=== PATIENT | male | born 1985 | race Two or more races ===

== ENCOUNTER 2022-06-11 13:31 | Emergency (ER) | payer OTHER ==
[~2022-06-11] VITALS: Ht 182.9 cm; Wt 111.6 kg
[2022-06-11] MEDS ORDERED: DESCOVY 200-251 EACH (13:49)
[2022-06-11] MEDS ORDERED: KETO10TA2 PO (16:03)
[2022-06-11] MEDS ORDERED: NORFLEX100MG PO (16:03)
== END 2022-06-11 16:15 | disposition home or self-care (01) ==
LOC: ER 13:31
DX: M54.9 Dorsalgia, unspecified (principal); Z88.2 Allergy status to sulfonamides

== ENCOUNTER 2022-12-06 14:51 | Emergency (ER) | payer OTHER ==
[~2022-12-06] VITALS: Ht 185.4 cm; Wt 108.9 kg
[~2022-12-06 14:51] MED LIST: DESCOVY 200-251 EACH; KETO10TA2 PO; NORFLEX100MG PO
[2022-12-06] MEDS ORDERED: DESCOVY 200-251 EACH (15:35)
== END 2022-12-06 18:29 | disposition home or self-care (01) ==
LOC: ER 14:51
DX: J06.9 Acute upper respiratory infection, unspecified (principal); Z88.2 Allergy status to sulfonamides; Z20.822 Contact with and (suspected) exposure to COVID-19

== ENCOUNTER 2023-05-01 15:35 | Emergency (ER) | payer OTHER ==
[~2023-05-01] VITALS: Ht 182.9 cm; Wt 113.4 kg
== END 2023-05-01 20:09 | disposition home or self-care (01) ==
LOC: ER 15:35
DX: R07.89 Other chest pain (principal); Z88.2 Allergy status to sulfonamides; Z88.8 Allergy status to other drugs, medicaments and biological substances
CPT/HCPCS: 36415; 71046; 93005; 96372; 99284; J2360

== ENCOUNTER → 2025-05-10 | Emergency (ER) | payer BC ==
[~2025-05-10] VITALS: Ht 185.4 cm; Wt 117.5 kg
[~2025-05-10] MED LIST changes: +DICLOFENAC SODI75 MG PO; +KETOROLAC TROMETHAMINE 60 MG VIAL IM ONE; +KETOROLAC TROMETHAMINE 60 MG VIAL IM STA; +ORPHENADRINE CITRATE 30 MG/ML AMPUL IM STA; +ORPHENADRINE CITRATE 30 MG/ML AMPUL ONE; +TOPROL XL25 M1
[2025-05-10 03:09] VITALS: BP 140/90; O2SAT 100
== END | disposition home or self-care (01) ==
LOC: ER 02:53
DX: M62.838 Other muscle spasm (principal); I10 Essential (primary) hypertension; Z88.2 Allergy status to sulfonamides

== ENCOUNTER 2025-05-19 15:46 | Emergency (ER) | payer BC ==
[~2025-05-19] VITALS: Ht 188 cm; Wt 95.3 kg
[~2025-05-19 15:46] MED LIST changes: -KETOROLAC TROMETHAMINE 60 MG VIAL IM ONE; -KETOROLAC TROMETHAMINE 60 MG VIAL IM STA; -ORPHENADRINE CITRATE 30 MG/ML AMPUL IM STA; -ORPHENADRINE CITRATE 30 MG/ML AMPUL ONE
[2025-05-19] MEDS ORDERED: NIFEDIPINE 10 MG CAPSULE PO ONE ×3 (16:30→18:15)
[2025-05-19 16:41] LABS: BASO % 0.1 % (0.1-1.2); EOS # 0.11 (0.04-0.54); EOS % 1.4 % (0.7-7.0); LYMPH # 2.82 (1.18-3.74); LYMPH % 36.9 % (19.3-53.1); MEAN PLATELET VOLUME 8.70 fl (9.4-12.4); MONO # 0.72 (0.24-0.82); MONO % 9.4 % (4.7-12.5); NEUT # 3.93 (1.56-6.13); NEUT % 51.4 % (34.0-71.1); RED CELL DISTRIBUTION WIDTH 14.4 % (11.6-14.4)
[2025-05-19 17:05] LABS: ALT/SGPT 24.0 U/L (12-78); AST/SGOT 15.0 U/L (15-37); BILIRUBIN TOTAL 0.63 mg/dL (0.3-1.2); BUN CREA RATIO 10.0 (7.0-25.0); CREATININE SERUM 1.25 mg/dL (0.70-1.30); GFR 64.99; GLOBULINA 3.5 G/DL (2.4-3.5); GLUCOSE FASTING 88.0 mg/dL (65-100); OSMOLALITY SERUM 282.0 MOSM/KG (275-295)
[2025-05-19] MEDS ORDERED: TRAMADOL HCL 50 MG TABLET PO ONE (18:15)
[2025-05-19] MEDS ORDERED: LABETALOL HCL 100 MG/20 ML ML ONE (18:51)
[2025-05-19] MEDS ORDERED: hydrALAZINE HCL 20 MG VIAL ONE (18:58)
[2025-05-19] MEDS ORDERED: LABETALOL HCL 200 MG/40 ML VIAL IV ONE (19:00)
[2025-05-19] MEDS ORDERED: hydrALAZINE HCL 20 MG VIAL IV ONE (19:00)
[2025-05-19] MEDS ORDERED: NEURONTIN300 MG PO (19:55)
[2025-05-19] MEDS ORDERED: AMLODIPINE BESYLATE 10 MG TABLET PO ONE (20:00)
== END 2025-05-19 21:35 | disposition home or self-care (01) ==
LOC: ER 15:46
PROVIDERS: General Practice
DX: I10 Essential (primary) hypertension (principal); M54.12 Radiculopathy, cervical region; Z88.2 Allergy status to sulfonamides